=== PATIENT | male | born 1985 | race Two or more races ===

== ENCOUNTER 2019-06-19 23:20 | Emergency (ER) | payer OTHER ==
[~2019-06-19] VITALS: Ht 175.3 cm; Wt 94.3 kg
[2019-06-19 23:30] VITALS: Ht 175.3 cm; Wt 94.3 kg
[2019-06-20 01:19] LABS: BASOPHIL % 0.3 % (0-2); PLATELET COUNT 242 x10^3mcL (130-400); RED CELL DISTRIBUTION WIDTH 13.6 % (11.5-14.5)
[2019-06-20 01:22] LABS: CHLORIDE SERUM 99 mmol/L (98-107); POTASSIUM SERUM 4.5 mmol/L (3.5-5.1); SODIUM SERUM 137 mmol/L (136-145)
[2019-06-20 01:39] LABS: ALBUMIN 4.1 g/dL (3.4-5.0); ALKALINE PHOSPHATASE 74 U/L (46-116); ALT/SGPT 27 U/L (16-63); AST/SGOT 19 U/L (15-37); BILIRUBIN TOTAL 0.35 mg/dL (0.20-1.00); CALCIUM 9.1 mg/dL (8.5-10.1); CREATININE SERUM 1.1 mg/dL (0.7-1.3); GFR1 > 60 mL/min; GLUCOSE SERUM 97 mg/dL (74-106); TOTAL PROTEIN, SERUM 7.5 g/dL (6.4-8.2)
[2019-06-20 03:27] VITALS: BP 134/87
== END 2019-06-20 03:27 | disposition home or self-care (01) ==
LOC: ED 23:20
PROVIDERS: Emergency Medicine
DX: B34.9 Viral infection, unspecified (principal); F17.210 Nicotine dependence, cigarettes, uncomplicated
CPT/HCPCS: J1885; J7030

== ENCOUNTER 2019-08-16 23:08 | Emergency (ER) | payer OTHER ==
[~2019-08-16] VITALS: Ht 180.3 cm; Wt 97.5 kg
[2019-08-16 23:15] VITALS: Ht 180.3 cm; Wt 97.5 kg
[2019-08-17 04:30] VITALS: BP 135/81
[2019-08-17 20:37] LABS: UA SPECIFIC GRAVITY 1.025 (1.005-1.035); microscopic required? YES; urine erythrocyte 2+ (NEGATIVE)
== END 2019-08-17 04:31 | disposition home or self-care (01) ==
LOC: ED 23:08
PROVIDERS: Emergency Medicine
DX: B02.9 Zoster without complications (principal); N50.811 Right testicular pain
CPT/HCPCS: 87491; 87591; J1885; Q0092

== ENCOUNTER 2019-08-25 03:17 | Emergency (ER) | payer OTHER ==
[~2019-08-25] VITALS: Ht 182.9 cm; Wt 103.0 kg
[2019-08-25 03:25] VITALS: Ht 182.9 cm; Wt 103.0 kg
[2019-08-25 05:29] VITALS: BP 118/74
== END 2019-08-25 05:29 | disposition home or self-care (01) ==
LOC: ED 03:17
DX: M54.40 Lumbago with sciatica, unspecified side (principal)
CPT/HCPCS: J2270; Q0162